=== PATIENT | male | born 1985 | race Caucasian/White ===

== ENCOUNTER 2016-07-05 15:47 | Emergency (ER) | payer OTHER ==
[2016-07-05 16:55] VITALS: BP 141/89
--- NOTE | 2016-07-05 18:01 | UC ---
Dental HPI - HPI Summary HPI Summary: 30 male presents today complaining of dental pain, swelling that began 3 days ago after fracturing a tooth, 07/02/16. Patient states he does not have very good dental hygiene and has a lot of dental caries. He was eating a cooking at work when he felt something hard and realized it was part of his tooth. He took Ibuprofen for pain which gave him some relief. His main concern is the swelling that began yesterday 07/04/16. Denies fever/chills, nausea, redness and discharge. it does cause him pain to open his mouth wide. has been able to eat and drink. Denies difficulty breathing or problems with airway. - History of Current Complaint Chief Complaint: UCDentalProblem Stated Complaint: DENTAL COMPLAINT Time Seen by Provider: 07/05/16 17:44 Hx Obtained From: Patient Onset/Duration: Sudden Onset, Lasting Days Severity: Moderate Pain Intensity: 6 Pain Scale Used: 0-10 Numeric Aggravating: Chewing Alleviating: OTC Meds - Allergies/Home Medications Allergies/Adverse Reactions: Allergies Allergy/AdvReac Type Severity Reaction Status Date / Time Penicillins Allergy Severe anaphylaxis Verified 07/05/16 16:55 Codeine AdvReac Unknown pt's Verified 07/05/16 16:55 mother and sister allergic - he's never taken before Home Medications: Home Medications Ibuprofen TAB* [Advil TAB*] 400 mg PO PRN 07/05/16 [History] Insulin Regular (Human) [Humulin R U-500 (Concentrated)] 07/05/16 [History] PMH/Surg Hx/FS Hx/Imm Hx Endocrine History Of: Reports: Diabetes - type 1 Denies: Thyroid Disease Cardiovascular History Of: Reports: Cardiac Disorders - Bicuspid aortic valve replacement 2002 Denies: Hypertension Respiratory History Of: Reports: Asthma - (as a child - not treated now) Denies: COPD GI/ History Of: Denies: Ulcer - Surgical History Surgical History: Yes Surgery Procedure, Year, and Place: Bicuspid aortic valve replacement 2002. states left arm main artery resection - Family History Known Family History: Positive: Diabetes, Renal Disease - Social History Alcohol Use: None Substance Use Type: None Smoking Status (MU): Never Smoked Tobacco - Immunization History Most Recent Influenza Vaccination: not utd Most Recent Tetanus Shot: Perhaps 2 years ago Review of Systems Constitutional: Negative Skin: Negative Eyes: Negative ENT: Dental Pain - swelling Respiratory: Negative Cardiovascular: Negative Gastrointestinal: Negative Genitourinary: Negative Motor: Negative Neurovascular: Negative Musculoskeletal: Negative Neurological: Negative Psychological: Negative All Other Systems Reviewed And Are Negative: Yes Physical Exam Triage Information Reviewed: Yes Appearance: Well-Appearing, No Pain Distress, Well-Nourished Vital Signs: Initial Vital Signs Temp 98.5 F 07/05/16 16:51 Pulse 82 07/05/16 16:51 Resp 16 07/05/16 16:51 BP 141/89 07/05/16 16:51 Pulse Ox 99 07/05/16 16:51 Vital Signs Reviewed: Yes Eyes: Positive: Conjunctiva Clear ENT: Positive: Normal ENT inspection, Hearing grossly normal, Pharynx normal - airway patent and no sign of peritonsillar abscess, TMs normal, Trismus - mild upon opening mouth wide, causes some pain/pressure left side under mandible.. Negative: Pharyngeal erythema, Nasal congestion, Nasal drainage, Tonsillar swelling, Tonsillar exudate Dental: Positive: Gross Decay/Caries @, Dental Fracture @ - tooth #18 left bottom side, swelling noted under left mandible no sign or palpation of abscess formation. Swelling and erythema surrounding farctured tooth. no sign of discharge. not hot to touch, Abscess @ - appears to be start of abscess under left mandible/cheek around tooth 18th however unable to palpate or visualize at this time, Cervical Lymphadenopathy - b/l. Negative: Percussion Tenderness @ Neck: Positive: Supple, Tenderness @ - left manidble on palpation, Other: - mild edema noted on under left mandible no erythema or warmth noted Respiratory: Positive: Chest non-tender, Lungs clear, Normal breath sounds, No respiratory distress Cardiovascular: Positive: RRR, No Murmur, Pulses Normal, Brisk Capillary Refill Abdominal Exam: Normal Musculoskeletal Exam: Normal Neurological Exam: Normal Psychological Exam: Normal Skin Exam: Normal Dental Complaint Course/Dx - Course Course Of Treatment: patient will be given clindamycin for infection. prescribed ibuprofen for pain. told to make an appointment with dentist to have tooth fixed or problem will re-occur. strongly recommended probiotics while taking the antibiotic. aware of worsening signs and symptoms to watch out for. - Differential Dx/Diagnosis Differential Diagnosis/Dx: Dental Abscess, Dental Caries, Fractured Tooth, Peritonsillar Abcess, Pharyngitis Provider Diagnoses: Dental abscess/infection Discharge - Discharge Plan Condition: Stable Disposition: HOME Prescriptions: Clindamycin CAP* [Cleocin 150 MG CAP*] 300 mg PO QID #28 cap Ibuprofen TAB* [Motrin TAB* 600 MG] 600 mg PO Q8H PRN #15 tab PRN Reason: Pain Patient Education Materials: Dental Abscess (ED), Toothache (ED) Referrals: Jesus Pérez MD [Primary Care Provider] - Additional Instructions: Take medication as prescribed. Ibuprofen for pain and swelling. Antibiotic for infection. Please take a Probiotic or eat Vietnamese yogurt an hour after taking antibiotic to maintain good bacteria in your system. If symptoms worsen and you develop fever/chills, increasing pain, redness and swelling please seek medical attention immediately. Make an appointment with your dentist to be seen and have tooth fixed. Ice packs or warm compresses may help with pain.
== END 2016-07-05 18:30 | disposition home or self-care (01) ==
LOC: UCEAST 15:47
DX: K04.7 Periapical abscess without sinus (principal); Z88.5 Allergy status to narcotic agent; Z88.0 Allergy status to penicillin; E10.9 Type 1 diabetes mellitus without complications; Z79.4 Long term (current) use of insulin; Z95.2 Presence of prosthetic heart valve
CPT/HCPCS: 99212; G0463

== ENCOUNTER 2018-05-02 06:43 | Emergency (ER) | payer BC, OTHER ==
[2018-05-02 07:39] LABS: ABS Basophils 0.1 10^3/ul (0-0.2); ABS Eosinophils 0.4 10^3/ul (0-0.6); ABS Lymphocytes 1.7 10^3/ul (1.0-4.8); ABS Monocytes 0.4 10^3/ul (0-0.8); ABS Neutrophils 4.7 10^3/ul (1.5-7.7); ABS Nucleated RBC 0 10^3/ul; Eosinophil % 5.7 %; Hematocrit 46 % (42-52); Lymphocyte % 23.6 %; Mean Corpuscular HGB Conc 35 g/dl (31-36); Mean Corpuscular Hemoglobin 30 pg (27-31); Mean Corpuscular Volume 85 fL (80-94); Mean Platelet Volume 7.2 fL (7.4-10.4); Nucleated Red Blood Cells % 0.1; Platelet Count 251 10^3/ul (150-450); Red Blood Count 5.39 10^6/ul (4.00-5.40); Red Cell Distribution Width 13 % (10.5-15); White Blood Count 7.3 10^3/ul (3.5-10.8)
--- NOTE | 2018-05-02 07:47 | ED ---
HPI Diabetic - HPI Summary HPI Summary: 32-year-old male presents possible accident insulin overdose today. He states that he took his insulin in the dark. He states he normally takes 10 of the Humalog and 60 of the regular insulin. He states that he took a large amount of Humalog does not no one how much and realized it as he was given himself his regular insulin that he can taken too much of the humalog but does not know how much he took. States he had a piece of chocolate on his way to the ED. He states he feels fine. No chest pain shortness breath or bowel pain. No urinary symptoms. He denies any foggines or dizziness. He states he feels anxious. He states he had cake last night. He states he did not check his blood sugar prior to giving him insulin. He normally does not check his blood sugar prior to getting the 10 units humalog. He is a type I diabetic. - History Of Current Complaint Chief Complaint: EDDiabeticProb Time Seen by Provider: 05/02/18 07:10 - Allergies/Home Medications Allergies/Adverse Reactions: Allergies Allergy/AdvReac Type Severity Reaction Status Date / Time codeine Allergy Unknown Verified 05/02/18 06:48 Reaction Details Penicillins Allergy Anaphylatic Verified 05/02/18 06:48 Shock Home Medications: Home Medications Insulin Glargine,Hum.rec.anlog [Brock Kirk U-100] 80 unit SUBCUT QAM 05/02 [History Confirmed 05/02/18] PMH/Surg Hx/FS Hx/Imm Hx Endocrine/Hematology History: Reports: Hx Diabetes - type 1 Denies: Hx Thyroid Disease Cardiovascular History: Denies: Hx Hypertension Respiratory History: Reports: Hx Asthma - (as a child - not treated now) Denies: Hx Chronic Obstructive Pulmonary Disease (COPD) GI History: Denies: Hx Ulcer - Surgical History Surgery Procedure, Year, and Place: Bicuspid aortic valve replacement 2002. states left arm main artery resection Infectious Disease History: No Infectious Disease History: Denies: Hx Clostridium Difficile, Hx Hepatitis, Hx Human Immunodeficiency Virus (HIV), Hx of Known/Suspected MRSA, Hx Shingles, Hx Tuberculosis, Hx Known/ Suspected VRE, Hx Known/Suspected VRSA, History Other Infectious Disease, Traveled Outside the [place] in Last 30 Days - Family History Known Family History: Positive: Diabetes, Renal Disease - Social History Alcohol Use: None Substance Use Type: Reports: None Smoking Status (MU): Never Smoked Tobacco Review of Systems Negative: Fever Negative: Chest Pain Negative: Shortness Of Breath Negative: Abdominal Pain All Other Systems Reviewed And Are Negative: Yes Physical Exam Triage Information Reviewed: Yes Vital Signs On Initial Exam: Initial Vitals Temp Pulse Resp BP Pulse Ox 97.4 F 85 16 154/86 98 05/02/18 06:44 05/02/18 06:44 05/02/18 06:44 05/02/18 06:44 05/02/18 06:44 Vital Signs Reviewed: Yes Appearance: Positive: Well-Appearing Skin: Positive: Warm, Dry Head/Face: Positive: Normal Head/Face Inspection Eyes: Positive: Normal, Conjunctiva Clear ENT: Positive: Pharynx normal Respiratory/Lung Sounds: Positive: Clear to Auscultation, Breath Sounds Present Cardiovascular: Positive: Normal, RRR Abdomen Description: Positive: Nontender, Soft Bowel Sounds: Positive: Present Musculoskeletal: Positive: Normal Neurological: Positive: Normal Psychiatric: Positive: Normal Diagnostics - Vital Signs Vital Signs Temp Pulse Resp BP Pulse Ox 05/02/18 07:03 101 17 99 05/02/18 06:59 106 14 151/98 99 05/02/18 06:44 97.4 F 85 16 154/86 98 - Laboratory Lab Results: Lab Results 05/02/18 Range/Units 07:26 WBC 7.3 (3.5-10.8) 10^3/ul RBC 5.39 (4.00-5.40) 10^6/ul Hgb 16.0 (14.0-18.0) g/dl Hct 46 (42-52) % MCV 85 (80-94) fL MCH 30 (27-31) pg MCHC 35 (31-36) g/dl RDW 13 (10.5-15) % Plt Count 251 (150-450) 10^3/ul MPV 7.2 L (7.4-10.4) fL Neut % (Auto) 64.3 % Lymph % (Auto) 23.6 % Maries % (Auto) 5.5 % Eos % (Auto) 5.7 % Baso % (Auto) 0.9 % Absolute Neuts (auto) 4.7 (1.5-7.7) 10^3/ul Absolute Lymphs (auto) 1.7 (1.0-4.8) 10^3/ul Absolute Monos (auto) 0.4 (0-0.8) 10^3/ul Absolute Eos (auto) 0.4 (0-0.6) 10^3/ul Absolute Basos (auto) 0.1 (0-0.2) 10^3/ul Absolute Nucleated RBC 0 10^3/ul Nucleated RBC % 0.1 Result Diagrams: 05/02/18 07:26 05/02/18 07:26 Lab Statement: Any lab studies that have been ordered have been reviewed, and results considered in the medical decision making process. Re-Evaluation - Re-Evaluation First Eval Re-Evaluation Time: 08:16 Change: Worse Comment: glucose is 40. so gave glucagon. Second Eval Re-Evaluation Time: 08:29 Change: Improved Comment: feeling better after juice and glucagon Third Eval Re-Evaluation Time: 08:51 Comment: 147 Diabetic Course/Dx - Course Course Of Treatment: 32-year-old male presents possible accident insulin overdose today. He states that he took his insulin in the dark. He states he normally takes 10 of the Humalog and 60 of the regular insulin. He states that he took a large amount of Humalog does not no one how much and realized it as he was given himself his regular insulin that he can taken too much of the humalog but does not know how much he took. States he had a piece of chocolate on his way to the ED. He states he feels fine. No chest pain shortness breath or bowel pain. No urinary symptoms. He denies any foggines or dizziness. He states he feels anxious. He states he had cake last night. He states he did not check his blood sugar prior to giving him insulin. He normally does not check his blood sugar prior to getting the 10 units humalog. He is a type I diabetic. On exam normal physical exam. Blood sugar is currently 102. gave patient a sandwich which ate. patient sugar dropped to 48. gave juice and glucagon. sugar went up to 148 and states 132. discharge to follow up with primary. patient understand and agrees with plan. - Diagnoses Differential Dx: Diabetic Ketoacidosis, Hypoglycemia Provider Diagnoses: Hypoglycemia Discharge - Sign-Out/Discharge Documenting (check all that apply): Patient Departure - Discharge Plan Condition: Good Disposition: HOME Patient Education Materials: Hypoglycemia in a Person with Diabetes (ED) Forms: *Work Release Referrals: Jesus Pérez MD [Primary Care Provider] - Additional Instructions: check blood sugar in an hour Follow up with primary tomorrow Return to ED if develop any new or worsening symptoms - Billing Disposition and Condition Condition: GOOD Disposition: Home
[2018-05-02 08:00] LABS: EGFR Non-African American 116.9 (>60)
[2018-05-02] MEDS ORDERED: Glucagon* 1 MG VIAL IM ONE (08:08)
[2018-05-02 10:01] VITALS: BP 160/87
== END 2018-05-02 10:00 | disposition home or self-care (01) ==
LOC: ED 06:43
DX: E10.649 Type 1 diabetes mellitus with hypoglycemia without coma (principal); Z79.4 Long term (current) use of insulin; Z95.4 Presence of other heart-valve replacement
CPT/HCPCS: 36415; 80053; 85025; 96372; 99283; J1610

== ENCOUNTER 2018-11-25 07:02 | Emergency (ER) | payer BC ==
[2018-11-25 07:13] VITALS: BP 142/93
--- NOTE | 2018-11-25 07:39 | UC ---
Skin Complaint HPI - HPI Summary HPI Summary: 32-year-old male comes in with a chief complaint of a rash on both hands. 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 This all started about a month ago with the rash. It's dry and cracked and somewhat painful. No fevers no chills no drainage. Hot water makes the pain worse. He has tried some ointments without much help. - History of Current Complaint Chief Complaint: UCRash Time Seen by Provider: 11/25/18 07:08 Stated Complaint: RASH Pain Intensity: 0 - Allergy/Home Medications Allergies/Adverse Reactions: Allergies Allergy/AdvReac Type Severity Reaction Status Date / Time codeine Allergy Unknown Verified 11/25/18 07:13 Reaction Details Penicillins Allergy Anaphylatic Verified 11/25/18 07:13 Shock Home Medications: Home Medications Omeprazole 40 mg PO DAILY 11/25/18 [History Confirmed 11/25/18] PMH/Surg Hx/FS Hx/Imm Hx Previously Healthy: Yes Endocrine History: Diabetes GI/ History: Gastroesophageal Reflux - Surgical History Surgical History: Yes Surgery Procedure, Year, and Place: Bicuspid aortic valve replacement 2002. states left arm main artery resection - Family History Known Family History: Positive: Diabetes, Renal Disease - Social History Alcohol Use: None Substance Use Type: None Smoking Status (MU): Never Smoked Tobacco - Immunization History Most Recent Influenza Vaccination: not utd Most Recent Tetanus Shot: Perhaps 2 years ago Review of Systems All Other Systems Reviewed And Are Negative: Yes Constitutional: Positive: Negative Skin: Positive: Other - SEE HPI Eyes: Positive: Negative ENT: Positive: Negative Respiratory: Positive: Negative Cardiovascular: Positive: Negative Gastrointestinal: Positive: Negative Motor: Positive: Negative Neurovascular: Positive: Negative Musculoskeletal: Positive: Negative Neurological: Positive: Negative Psychological: Positive: Negative Is Patient Immunocompromised?: No Physical Exam Triage Information Reviewed: Yes Appearance: Well-Appearing, No Pain Distress, Well-Nourished Vital Signs: Initial Vital Signs Temp 97.2 F 11/25/18 07:09 Pulse 88 11/25/18 07:09 Resp 18 11/25/18 07:09 BP 142/93 11/25/18 07:09 Pulse Ox 99 11/25/18 07:09 Vital Signs Reviewed: Yes Eye Exam: Normal Eyes: Positive: Conjunctiva Clear Neck: Positive: Supple Respiratory: Positive: No respiratory distress Musculoskeletal Exam: Normal Musculoskeletal: Positive: Strength Intact, ROM Intact Neurological: Positive: Alert Psychological: Positive: Age Appropriate Behavior Skin: Positive: Other - DRY CRACKING SLIGHTLY ERYTHEMATOUS RASH B/L HANDS. NO SDAINAGE, NO STRAKING. NL CAP REFILL. Course/Dx - Diagnoses Provider Diagnosis: Dyshidrotic eczema Discharge - Sign-Out/Discharge Documenting (check all that apply): Patient Departure All imaging exams completed and their final reports reviewed: No Studies - Discharge Plan Condition: Stable Disposition: HOME Prescriptions: Desonide [Desowen] 1 applic TOPICAL BID #60 gm Patient Education Materials: Dyshidrotic Eczema (ED) Referrals: Jesus Pérez MD [Primary Care Provider] - Robert Resendez MD [Medical Doctor] - Sue Zaragoza [Medical Doctor] - Additional Instructions: FOLLOW UP WITH DERMATOLOGY AND YOUR PRIMARY CARE DOCTOR. GET RECHECKED SOONER IF YOUR CONDITION WORSENS OR ANY QUESTIONS OR CONCERNS. - Billing Disposition and Condition Condition: STABLE Disposition: Home
== END 2018-11-25 07:45 | disposition home or self-care (01) ==
LOC: UCEAST 07:02
DX: L30.1 Dyshidrosis [pompholyx] (principal); E11.9 Type 2 diabetes mellitus without complications
CPT/HCPCS: 99212; G0463